=== PATIENT | male | born 1960 | race Caucasian/White ===

== ENCOUNTER 2023-04-06 00:27 | Inpatient (IN) | payer MEDICAID ==
[~2023-04-06] VITALS: Ht 165.1 cm; Wt 90.7 kg
[2023-04-06] VITALS (9 sets, daily range): BP systolic 136–153; PULSE 68–115; RESP 18–26; TEMP 97.4–99.1; O2SAT 92–99
[2023-04-06] MEDS ORDERED: IPRATROPIUM BROM 0.5 MG/2.5 ML VIAL.NEB (ATROVENT) INH ONE ×2 (00:39→00:45)
[2023-04-06] MEDS ORDERED: ALBUTEROL SULFATE 0.083% 2.5 MG/3 ML VIAL.NEB INH ONE ×2 (00:39→00:45)
[2023-04-06] MEDS ORDERED: DEXAMETHASONE SOD PHOSPHATE 10 MG/ML VIAL IVP ONE ×2 (00:45→23:15)
[2023-04-06] MEDS ORDERED: MORPHINE 4 MG INJ. 4 MG/ML VIAL IVP ONE (00:45)
[2023-04-06] MEDS ORDERED: DEXAMETHASONE SOD PHOSPHATE 10 MG/ML VIAL ONE (00:47)
[2023-04-06] MEDS ORDERED: MORPHINE 4 MG INJ. 4 MG/ML VIAL ONE (00:49)
[2023-04-06 00:50] LABS: BASOPHILS % (AUTO) 0.2 % (0.0-2.0); EOSINOPHILS # (AUTO) 0.4 K/uL (0.0-0.4); EOSINOPHILS % (AUTO) 4.6 % (0.0-4.0); HEMATOCRIT 42.7 % (36-54); HEMOGLOBIN 13.8 g/dL (14.0-18.0); LYMPHOCYTES # (AUTO) 4.9 K/uL (1.0-5.5); LYMPHOCYTES % (AUTO) 53.6 % (20.5-51.5); MEAN CORPUSCULAR HEMOGLOBIN 28 pg (27-31); MEAN CORPUSCULAR HGB CONC 32 % (32-36); MEAN CORPUSCULAR VOLUME 87 fL (79.0-98.0); MONOCYTES # (AUTO) 0.5 K/uL (0.0-1.0); MONOCYTES % (AUTO) 5.6 % (1.7-9.3); NEUTROPHILS # (AUTO) 3.3 K/uL (1.8-7.7); PLATELET COUNT (AUTO) 335 K/uL (130-430); RED BLOOD CELL COUNT(AUTO) 4.93 MIL/uL (4.2-6.2); RED CELL DISTRIBUTION WIDTH 15.2 % (9.0-15.0); WHITE BLOOD COUNT (AUTO) 9.1 K/uL (4.8-10.8)
[2023-04-06 01:18] LABS: ALANINE AMINOTRANSFERASE 13 U/L (12-78); ALBUMIN 3.5 g/dL (3.4-4.8); ANION GAP 10 (5-15); ASPARTATE AMINOTRANSFERASE 13 U/L (10-37); CALCIUM 8.7 mg/dL (8.4-11.0); CARBON DIOXIDE 28 mmol/L (23-29); CHLORIDE 105 mmol/L (98-107); CREATININE 1.01 mg/dL (0.55-1.30); GFR AFRICAN AMERICAN 96 mL/min (>90); GLUCOSE 143 mg/dL (74-106); POTASSIUM 3.6 mmol/L (3.5-5.1); SODIUM SERUM 143 mmol/L (136-145); TOTAL BILIRUBIN 0.2 mg/dL (0.0-1.0); UREA NITROGEN, BLOOD 18 mg/dL (8-21)
[2023-04-06 01:20] LABS: LIPASE 102 U/L (73-393)
[2023-04-06 01:23] LABS: GFR NON AFRICAN-AMERICAN 80 mL/min (>90)
[2023-04-06 03:18] LABS: BILIRUBIN,URINE NEGATIVE (NEGATIVE); CLARITY/URINE Clear (CLEAR); COLOR,URINE YELLOW (YELLOW); GLUCOSE,URINE NEGATIVE (NEGATIVE); KETONES,URINE NEGATIVE (NEGATIVE); NITRITE, URINE NEGATIVE (NEGATIVE); PH,URINE 5.5 (5.0-8.0); PROTEIN URINE NEGATIVE (NEGATIVE); UROBILINOGEN,URINE 0.2 (0.2-1.0)
[2023-04-06 03:20] LABS: BLOOD, URINE TRACE (NEGATIVE); LEUKOCYTE ESTERASE ,URINE NEGATIVE (NEGATIVE)
[2023-04-06 03:37] LABS: BACTERIA,URINE RARE /HPF (None Seen)
[2023-04-06] MEDS ORDERED: IPRATROPIUM/ALBUTEROL SULFATE 3 ML AMPUL.NEB (DUONEB) INH ONE (04:30)
[2023-04-06] MEDS ORDERED: PANTOPRAZOLE SODIUM 80 MG in NS 100 ML IV ONE (04:30)
[2023-04-06] MEDS ORDERED: MAG-AL HYDROX/SIMETH 30 ML UDC PO ONE ×2 (04:30→10:45)
[2023-04-06] MEDS ORDERED: PANTOPRAZOLE SODIUM 40 MG/VIAL (PROTONIX) ONE (04:58)
[2023-04-06] MEDS: MAG-AL HYDROX/SIMETH 30 ML UDC PO SCH ×3 (13:23→21:01)
[2023-04-06] MEDS: IPRATROPIUM/ALBUTEROL SULFATE 3 ML AMPUL.NEB (DUONEB) INH SCH (19:54)
[2023-04-06] MEDS: PANTOPRAZOLE SODIUM 40 MG/VIAL (PROTONIX) IVP SCH (21:01)
[2023-04-06] MEDS ORDERED: NALOXONE HCL 0.4 MG/ML AMP (NARCAN) IVP PRN (23:15)
[2023-04-06] MEDS ORDERED: MORPHINE 2 MG/ML INJ. SYRINGE IVP PRN (23:15)
[2023-04-06] MEDS ORDERED: MORPHINE 4 MG INJ. 4 MG/ML VIAL IVP PRN (23:15)
[2023-04-07 00:30] VITALS: BP_SYST 129; PULSE 88; RESP 18; TEMP 98.8; O2SAT 98
[2023-04-07] MEDS: IPRATROPIUM/ALBUTEROL SULFATE 3 ML AMPUL.NEB (DUONEB) INH SCH ×2 (02:01→06:56)
[2023-04-07 02:05] VITALS: O2SAT 97
[2023-04-07 05:14] LABS: BASOPHILS % (AUTO) 0.1 % (0.0-2.0); EOSINOPHILS % (AUTO) 0.2 % (0.0-4.0); HEMATOCRIT 40.3 % (36-54); HEMOGLOBIN 13.2 g/dL (14.0-18.0); LYMPHOCYTES # (AUTO) 1.3 K/uL (1.0-5.5); LYMPHOCYTES % (AUTO) 15.7 % (20.5-51.5); MEAN CORPUSCULAR HEMOGLOBIN 28 pg (27-31); MEAN CORPUSCULAR HGB CONC 33 % (32-36); MEAN CORPUSCULAR VOLUME 86 fL (79.0-98.0); MONOCYTES # (AUTO) 0.2 K/uL (0.0-1.0); MONOCYTES % (AUTO) 2.2 % (1.7-9.3); NEUTROPHILS # (AUTO) 6.6 K/uL (1.8-7.7); NEUTROPHILS % (AUTO) 81.8 % (40.0-70.0); PLATELET COUNT (AUTO) 345 K/uL (130-430); RED BLOOD CELL COUNT(AUTO) 4.68 MIL/uL (4.2-6.2); RED CELL DISTRIBUTION WIDTH 15.2 % (9.0-15.0); WHITE BLOOD COUNT (AUTO) 8.1 K/uL (4.8-10.8)
[2023-04-07 05:42] LABS: ALBUMIN 3.3 g/dL (3.4-4.8); CALCIUM 8.7 mg/dL (8.4-11.0); CREATININE 0.89 mg/dL (0.55-1.30); POTASSIUM 4.4 mmol/L (3.5-5.1); TOTAL BILIRUBIN 0.6 mg/dL (0.0-1.0); TOTAL PROTEIN, SERUM 6.5 g/dL (6.4-8.3)
[2023-04-07 06:55] VITALS: O2SAT 98
[2023-04-07 08:00] VITALS: O2SAT 95
[2023-04-07] MEDS ORDERED: METOPROLOL SUCCINATE 25 MG TAB.SR.24H (TOPROL XL) PO SCH (09:00)
[2023-04-07 09:38] VITALS: BP_SYST 140; PULSE 87; RESP 18; TEMP 97
[2023-04-07] MEDS: PANTOPRAZOLE SODIUM 40 MG/VIAL (PROTONIX) IVP SCH (09:43)
[2023-04-07 14:27] LABS: BARBITURATE, URINE NEGATIVE (NEG <=200); BENZODIAZEPINE, URINE NEGATIVE (NEG <=150); CANNABINOID, URINE NEGATIVE (NEG <=50); COCAINE, URINE NEGATIVE (NEG <=150); METHAMPHETAMINES SCREEN,URINE NEGATIVE (NEG <=500); OPIATE, URINE POSITIVE (NEG <=100); PHENCYCLIDINE SCREEN,URINE NEGATIVE (NEG <=25); URINE AMPHETAMINE NEGATIVE (NEG <=500); URINE METHADONE NEGATIVE (NEG <=200)
[2023-04-07 14:28] LABS: UR TRICYCLIC ANTIDEPRESSANTS NEGATIVE (NEG <=300); URINE OXYCODONE SCREEN NEGATIVE (NEG <=100); URINE PROPOXYPHENE SCREEN NEGATIVE (NEG <=300)
== END 2023-04-07 11:30 | disposition left against medical advice (07) | DRG 140 ==
LOC: SED 00:27 → STU 04:22
PROVIDERS: ADMIT Internal Medicine; ATTEND Internal Medicine
PROC: 5A09357 Assistance with Respiratory Ventilation, Less than 24 Consecutive Hours, Continuous Positive Airway Pressure (ICD-10-PCS; principal; 2023-04-06)
DX: J44.1 Chronic obstructive pulmonary disease with (acute) exacerbation (principal); J96.01 Acute respiratory failure with hypoxia; E44.1 Mild protein-calorie malnutrition; K80.20 Calculus of gallbladder without cholecystitis without obstruction; K27.9 Peptic ulcer, site unspecified, unspecified as acute or chronic, without hemorrhage or perforation; K29.20 Alcoholic gastritis without bleeding; J20.9 Acute bronchitis, unspecified; I10 Essential (primary) hypertension; E66.9 Obesity, unspecified; E27.9 Disorder of adrenal gland, unspecified; F60.9 Personality disorder, unspecified; Z68.33 Body mass index [BMI] 33.0-33.9, adult; Z87.891 Personal history of nicotine dependence
CPT/HCPCS: 36415; 71045; 71270-TC; 74175; 76376; 80053; 80307; 81000; 81003; 83690; 83735; 83880; 84484; 85025; 85379; 93306; 94640; 94660; 94760; 96365; 96375; 99291; C9113; G0378; J1100; J2270; Q9967

== ENCOUNTER 2023-04-20 13:03 | Inpatient (IN) | payer MEDICAID ==
[~2023-04-20] VITALS: Ht 165.1 cm; Wt 93.5 kg
[2023-04-20 13:06] VITALS: BP_SYST 199; PULSE 119; RESP 42; TEMP 99.2; O2SAT 97
[2023-04-20] MEDS ORDERED: IPRATROPIUM BROM 0.5 MG/2.5 ML VIAL.NEB (ATROVENT) INH ONE (13:15)
[2023-04-20] MEDS ORDERED: methylPREDNISolone SOD SUCC/PF 62.5 MG/ML VIAL IVP ONE (13:15)
[2023-04-20] MEDS ORDERED: ALBUTEROL SULFATE 0.083% 2.5 MG/3 ML VIAL.NEB INH ONE (13:15)
[2023-04-20] MEDS ORDERED: MORPHINE 4 MG INJ. 4 MG/ML VIAL IVP ONE (13:30)
[2023-04-20 13:34] LABS: BASOPHILS % (AUTO) 0.3 % (0.0-2.0); EOSINOPHILS # (AUTO) 0.2 K/uL (0.0-0.4); HEMATOCRIT 44.8 % (36-54); HEMOGLOBIN 14.5 g/dL (14.0-18.0); LYMPHOCYTES # (AUTO) 4.3 K/uL (1.0-5.5); LYMPHOCYTES % (AUTO) 40.6 % (20.5-51.5); MEAN CORPUSCULAR HEMOGLOBIN 28 pg (27-31); MEAN CORPUSCULAR HGB CONC 32 % (32-36); MEAN CORPUSCULAR VOLUME 87 fL (79.0-98.0); MONOCYTES # (AUTO) 0.5 K/uL (0.0-1.0); MONOCYTES % (AUTO) 5.2 % (1.7-9.3); NEUTROPHILS # (AUTO) 5.5 K/uL (1.8-7.7); NEUTROPHILS % (AUTO) 51.9 % (40.0-70.0); PLATELET COUNT (AUTO) 327 K/uL (130-430); RED BLOOD CELL COUNT(AUTO) 5.17 MIL/uL (4.2-6.2); RED CELL DISTRIBUTION WIDTH 15.5 % (9.0-15.0); WHITE BLOOD COUNT (AUTO) 10.5 K/uL (4.8-10.8)
[2023-04-20] MEDS ORDERED: NACL 0.9% 1,000 ML IV ONE ×2 (13:45→14:15)
[2023-04-20] MEDS ORDERED: MAGNESIUM SULFATE 50 ML IV ONE (13:45)
[2023-04-20] MEDS ORDERED: cefTRIAXone 1 GM in D5W 50 ML IV ONE (13:45)
[2023-04-20] MEDS ORDERED: ENALAPRILAT DIHYDRATE 1.25 MG/ML VIAL IVP ONE (14:15)
[2023-04-20 14:28] LABS: INFLUENZA TYPE A negative (NEGATIVE); INFLUENZA TYPE B NEGATIVE (NEGATIVE)
[2023-04-20 14:43] LABS: ANION GAP 6 (5-15); CALCIUM 8.4 mg/dL (8.4-11.0); CARBON DIOXIDE 30 mmol/L (23-29); CHLORIDE 105 mmol/L (98-107); CREATININE 1.03 mg/dL (0.55-1.30); GFR AFRICAN AMERICAN 94 mL/min (>90); GLUCOSE 121 mg/dL (74-106); POTASSIUM 3.4 mmol/L (3.5-5.1); SODIUM SERUM 141 mmol/L (136-145); UREA NITROGEN, BLOOD 16 mg/dL (8-21)
[2023-04-20 14:49] LABS: ALANINE AMINOTRANSFERASE 16 U/L (12-78); ALBUMIN 3.6 g/dL (3.4-4.8); ASPARTATE AMINOTRANSFERASE 13 U/L (10-37); TOTAL BILIRUBIN 0.4 mg/dL (0.0-1.0); TOTAL PROTEIN, SERUM 7.1 g/dL (6.4-8.3)
[2023-04-20 14:50] LABS: GFR NON AFRICAN-AMERICAN 78 mL/min (>90)
[2023-04-20] MEDS ORDERED: KCL 20 mEq in 100 mL (PREMIX) 100 ML IV ONE (15:15)
[2023-04-20] MEDS ORDERED: cefTRIAXone 1 GM VIAL ONE (15:24)
[2023-04-20] MEDS ORDERED: ACETAMINOPHEN 325 MG TABLET PO PRN (15:30)
[2023-04-20] MEDS ORDERED: ZOLPIDEM TARTRATE 5 MG TABLET PO PRN (15:30)
[2023-04-20] MEDS ORDERED: MAGNESIUM SULFATE 50 ML IV PRN (15:30)
[2023-04-20] MEDS ORDERED: MUPIROCIN 2% TOPICAL OINTMENT 22 GM NS PRN (15:30)
[2023-04-20] MEDS ORDERED: DOCUSATE SODIUM 100 MG CAPSULE PO PRN (15:30)
[2023-04-20] MEDS ORDERED: LORazepam 2 MG/ML VIAL IVP PRN (15:30)
[2023-04-20] MEDS ORDERED: MORPHINE 2 MG/ML INJ. SYRINGE IVP PRN ×2 (15:30)
[2023-04-20] MEDS ORDERED: POTASSIUM CHLORIDE 20 MEQ TAB.PRT.SR PO PRN (15:30)
[2023-04-20] MEDS ORDERED: ONDANSETRON HCL 4 MG/2 ML VIAL IVP PRN (15:30)
[2023-04-20 15:42] LABS: ABG O2 SAT% ESTIMATE 98.8 % (94.0-100.0); BLOOD GAS BASE EXCESS -0.4 mmol/L (-3.0-3.0); BLOOD GAS HCO3 26.1 mmol/L (21.0-27.0); BLOOD GAS PCO2 49.8 mmHg (32.0-45.0); BLOOD GAS PH 7.337 (7.350-7.450); BLOOD GAS PO2 150.5 mmHg (75.0-100.0)
[2023-04-20] MEDS ORDERED: METOPROLOL TARTRATE 25 MG TABLET PO ONE (15:45)
[2023-04-20 15:47] LABS: ALLEN'S TEST POSITIVE (P)
[2023-04-20] MEDS ORDERED: MORPHINE 4 MG INJ. 4 MG/ML VIAL IM ONE (16:15)
[2023-04-20 18:48] VITALS: BP_SYST 130; PULSE 109; O2SAT 98
[2023-04-20 18:59] VITALS: BP_SYST 103; PULSE 100; RESP 18; TEMP 98.3; O2SAT 97
[2023-04-20 19:30] VITALS: BP_SYST 137; PULSE 101; RESP 20; TEMP 98.2; O2SAT 98
[2023-04-20 20:00] VITALS: BP_SYST 137; PULSE 101; RESP 20; TEMP 98.2; O2SAT 98
[2023-04-20] MEDS ORDERED: IPRATROPIUM/ALBUTEROL SULFATE 3 ML AMPUL.NEB (DUONEB) ONE (20:07)
[2023-04-20 20:10] VITALS: O2SAT 98
[2023-04-20] MEDS: IPRATROPIUM/ALBUTEROL SULFATE 3 ML AMPUL.NEB (DUONEB) INH PRN (20:15)
[2023-04-20] MEDS: METOPROLOL TARTRATE 25 MG TABLET PO SCH (21:08)
[2023-04-20] MEDS: HEPARIN SODIUM,PORCINE 5,000 UNITS/ML VIAL SUBCUT SCH (21:09)
[2023-04-21] VITALS (8 sets, daily range): BP systolic 113–148; PULSE 61–92; RESP 16–18; TEMP 97.2–98.9; O2SAT 96–99
[2023-04-21 05:32] LABS: BASOPHILS % (AUTO) 0.1 % (0.0-2.0); HEMATOCRIT 38.6 % (36-54); HEMOGLOBIN 12.4 g/dL (14.0-18.0); LYMPHOCYTES # (AUTO) 2.2 K/uL (1.0-5.5); LYMPHOCYTES % (AUTO) 24.5 % (20.5-51.5); MEAN CORPUSCULAR HEMOGLOBIN 28 pg (27-31); MEAN CORPUSCULAR HGB CONC 32 % (32-36); MEAN CORPUSCULAR VOLUME 86 fL (79.0-98.0); MONOCYTES # (AUTO) 0.4 K/uL (0.0-1.0); MONOCYTES % (AUTO) 4.4 % (1.7-9.3); NEUTROPHILS # (AUTO) 6.5 K/uL (1.8-7.7); PLATELET COUNT (AUTO) 300 K/uL (130-430); RED CELL DISTRIBUTION WIDTH 15.6 % (9.0-15.0); WHITE BLOOD COUNT (AUTO) 9.2 K/uL (4.8-10.8)
[2023-04-21 05:57] LABS: CREATININE 0.73 mg/dL (0.55-1.30)
[2023-04-21] MEDS: PANTOPRAZOLE SODIUM 40 MG TAB PO SCH ×2 (08:37→21:06)
[2023-04-21] MEDS: METOPROLOL TARTRATE 25 MG TABLET PO SCH ×2 (08:38→21:07)
[2023-04-21] MEDS: HEPARIN SODIUM,PORCINE 5,000 UNITS/ML VIAL SUBCUT SCH ×2 (08:44→21:08)
[2023-04-21] MEDS: METHYLPREDNISOLONE SOD SUCC 40 MG/ML VIAL IVP SCH ×2 (08:51→21:09)
[2023-04-21 19:12] LABS: BARBITURATE, URINE NEGATIVE (NEG <=200); BENZODIAZEPINE, URINE NEGATIVE (NEG <=150); CANNABINOID, URINE NEGATIVE (NEG <=50); COCAINE, URINE NEGATIVE (NEG <=150); METHAMPHETAMINES SCREEN,URINE NEGATIVE (NEG <=500); OPIATE, URINE POSITIVE (NEG <=100); PHENCYCLIDINE SCREEN,URINE NEGATIVE (NEG <=25); UR TRICYCLIC ANTIDEPRESSANTS NEGATIVE (NEG <=300); URINE AMPHETAMINE NEGATIVE (NEG <=500); URINE METHADONE NEGATIVE (NEG <=200); URINE OXYCODONE SCREEN NEGATIVE (NEG <=100); URINE PROPOXYPHENE SCREEN NEGATIVE (NEG <=300)
[2023-04-22] VITALS (7 sets, daily range): BP systolic 128–139; PULSE 59–69; RESP 18; TEMP 97.8–98.7; O2SAT 92–97
[2023-04-22 07:13] LABS: CALCIUM 8.5 mg/dL (8.4-11.0); CREATININE 0.76 mg/dL (0.55-1.30)
[2023-04-22 07:17] LABS: BASOPHILS % (AUTO) 0.1 % (0.0-2.0); HEMATOCRIT 39.9 % (36-54); HEMOGLOBIN 12.8 g/dL (14.0-18.0); LYMPHOCYTES # (AUTO) 1.9 K/uL (1.0-5.5); LYMPHOCYTES % (AUTO) 16.9 % (20.5-51.5); MEAN CORPUSCULAR HEMOGLOBIN 28 pg (27-31); MEAN CORPUSCULAR HGB CONC 32 % (32-36); MEAN CORPUSCULAR VOLUME 86 fL (79.0-98.0); MONOCYTES # (AUTO) 0.3 K/uL (0.0-1.0); MONOCYTES % (AUTO) 2.8 % (1.7-9.3); NEUTROPHILS % (AUTO) 80.2 % (40.0-70.0); PLATELET COUNT (AUTO) 314 K/uL (130-430); RED BLOOD CELL COUNT(AUTO) 4.64 MIL/uL (4.2-6.2); RED CELL DISTRIBUTION WIDTH 15.4 % (9.0-15.0); WHITE BLOOD COUNT (AUTO) 11.2 K/uL (4.8-10.8)
[2023-04-22] MEDS: PANTOPRAZOLE SODIUM 40 MG TAB PO SCH (09:23)
[2023-04-22] MEDS: METOPROLOL TARTRATE 25 MG TABLET PO SCH (09:25)
[2023-04-22] MEDS: HEPARIN SODIUM,PORCINE 5,000 UNITS/ML VIAL SUBCUT SCH (09:33)
[2023-04-22] MEDS: IPRATROPIUM/ALBUTEROL SULFATE 3 ML AMPUL.NEB (DUONEB) INH PRN (09:35)
[2023-04-22] MEDS ORDERED: ALBMDI INH (09:48)
[2023-04-22] MEDS ORDERED: METH-776 PO (09:48)
== END 2023-04-22 13:05 | disposition home or self-care (01) | DRG 133 ==
LOC: SED 13:03 → UNDOADMIN 15:27 → SIC 15:27 → STU 16:25 → SMU 04-22 05:26
PROVIDERS: ADMIT General Practice; ATTEND General Practice
DX: J96.01 Acute respiratory failure with hypoxia (principal); E87.20 Acidosis, unspecified; R65.10 Systemic inflammatory response syndrome (SIRS) of non-infectious origin without acute organ dysfunction; J44.1 Chronic obstructive pulmonary disease with (acute) exacerbation; J45.901 Unspecified asthma with (acute) exacerbation; K29.70 Gastritis, unspecified, without bleeding; Z20.822 Contact with and (suspected) exposure to COVID-19; E87.6 Hypokalemia; Z87.891 Personal history of nicotine dependence
CPT/HCPCS: 36415; 36600; 71045; 76700-TC; 80048; 80053; 80307; 82803; 83037; 83605; 83735; 83880; 84484; 85025; 87040; 87081; 93005; 94640; 94660; 94760; 96365; 96367; 96375; 99291; G0378; J0696; J1030; J1644; J2270; J2930; J3475

== ENCOUNTER 2023-06-02 22:51 | Emergency (ER) | payer MEDICAID ==
[~2023-06-02] VITALS: Ht 165.1 cm; Wt 92.1 kg
[~2023-06-02 22:51] MED LIST: ALBMDI INH; METH-776 PO
[2023-06-02 23:00] VITALS: BP_SYST 147; PULSE 82; RESP 18; TEMP 98; O2SAT 98
[2023-06-03] MEDS ORDERED: methylPREDNISolone SOD SUCC/PF 62.5 MG/ML VIAL IVP ONE (00:15)
[2023-06-03] MEDS ORDERED: MORPHINE 4 MG INJ. 4 MG/ML VIAL IVP ONE (00:15)
[2023-06-03] MEDS ORDERED: IPRATROPIUM/ALBUTEROL SULFATE 3 ML AMPUL.NEB (DUONEB) INH ONE (00:15)
[2023-06-03] MEDS ORDERED: FAMOTIDINE PF 20 MG/2 ML VIAL IVP ONE (00:15)
[2023-06-03] MEDS ORDERED: ONDANSETRON HCL 4 MG/2 ML VIAL IVP ONE (00:15)
[2023-06-03 00:23] LABS: BASOPHILS % (AUTO) 0.5 % (0.0-2.0); EOSINOPHILS # (AUTO) 0.2 K/uL (0.0-0.4); EOSINOPHILS % (AUTO) 2.4 % (0.0-4.0); HEMATOCRIT 39.7 % (36-54); HEMOGLOBIN 12.9 g/dL (14.0-18.0); LYMPHOCYTES # (AUTO) 3.4 K/uL (1.0-5.5); MEAN CORPUSCULAR HEMOGLOBIN 28 pg (27-31); MEAN CORPUSCULAR HGB CONC 33 % (32-36); MEAN CORPUSCULAR VOLUME 86 fL (79.0-98.0); MONOCYTES # (AUTO) 0.7 K/uL (0.0-1.0); MONOCYTES % (AUTO) 8.3 % (1.7-9.3); NEUTROPHILS # (AUTO) 3.6 K/uL (1.8-7.7); NEUTROPHILS % (AUTO) 45.8 % (40.0-70.0); PLATELET COUNT (AUTO) 339 K/uL (130-430); RED CELL DISTRIBUTION WIDTH 15.2 % (9.0-15.0); WHITE BLOOD COUNT (AUTO) 7.9 K/uL (4.8-10.8)
[2023-06-03 00:37] LABS: ANION GAP 10 (5-15); CALCIUM 8.5 mg/dL (8.4-11.0); CARBON DIOXIDE 30 mmol/L (23-29); CHLORIDE 104 mmol/L (98-107); CREATININE 1.05 mg/dL (0.55-1.30); GFR AFRICAN AMERICAN 92 mL/min (>90); GLUCOSE 109 mg/dL (74-106); POTASSIUM 3.3 mmol/L (3.5-5.1); SODIUM SERUM 144 mmol/L (136-145); UREA NITROGEN, BLOOD 17 mg/dL (8-21)
[2023-06-03 00:41] LABS: GFR NON AFRICAN-AMERICAN 76 mL/min (>90)
[2023-06-03 00:44] LABS: ALANINE AMINOTRANSFERASE 16 U/L (12-78); ALBUMIN 3.2 g/dL (3.4-4.8); ASPARTATE AMINOTRANSFERASE 10 U/L (10-37); LIPASE 42 U/L (16-77); TOTAL BILIRUBIN 0.2 mg/dL (0.0-1.0); TOTAL PROTEIN, SERUM 6.3 g/dL (6.4-8.3)
[2023-06-03] MEDS ORDERED: ANT30 PO (03:29)
[2023-06-03] MEDS ORDERED: SUCR1TAB2 PO (03:29)
[2023-06-03] MEDS ORDERED: PRO40 PO (03:29)
[2023-06-03] MEDS ORDERED: CIPR500T5 PO (03:29)
[2023-06-03 03:54] VITALS: BP_SYST 128; PULSE 74; RESP 18; TEMP 98.2; O2SAT 97
== END 2023-06-03 03:54 | disposition home or self-care (01) ==
LOC: SED 22:51
DX: K29.70 Gastritis, unspecified, without bleeding (principal); N20.0 Calculus of kidney; I88.9 Nonspecific lymphadenitis, unspecified; N40.1 Benign prostatic hyperplasia with lower urinary tract symptoms; N39.0 Urinary tract infection, site not specified; E87.6 Hypokalemia; I10 Essential (primary) hypertension; J45.901 Unspecified asthma with (acute) exacerbation; R06.02 Shortness of breath; Z79.899 Other long term (current) drug therapy
CPT/HCPCS: 99285; 80053; 83690; 85025; 84484; 36415; 93005; 74176; 96374; 96375; 71045; 76376; 94640; J3490; J2930; J2405; J2270

== ENCOUNTER 2024-03-02 21:01 | Inpatient (IN) | payer MEDICAID ==
[~2024-03-02] VITALS: Ht 165.1 cm; Wt 93.4 kg
[~2024-03-02 21:01] MED LIST changes: +ALBU2.5V7 INH; +ANT30 PO; +FLUT1AER INH; -METH-776 PO; +PRED20TA PO; +PRO40 PO; +SUCR1TAB2 PO; +TAMS0.4C96 PO
[2024-03-02 21:15] VITALS: BP_SYST 184; PULSE 111; RESP 28; TEMP 97; O2SAT 94
[2024-03-02] MEDS: ALBUTEROL SULFATE 0.083% 2.5 MG/3 ML VIAL.NEB INH ONE (21:32)
[2024-03-02] MEDS ORDERED: AZITHROMYCIN 500 MG/VIAL (ZITHROMAX) IV ONE (21:33)
[2024-03-02] MEDS: methylPREDNISolone SOD SUCC/PF 62.5 MG/ML VIAL IVP ONE (21:35)
[2024-03-02] MEDS: cefTRIAXone 1 GM IVPB PREMIX 50 ML IV ONE (21:37)
[2024-03-02 21:39] LABS: BASOPHILS # (AUTO) 0.1 K/uL (0.0-0.2); BASOPHILS % (AUTO) 0.5 % (0.0-2.0); EOSINOPHILS # (AUTO) 0.5 K/uL (0.0-0.4); EOSINOPHILS % (AUTO) 4.1 % (0.0-4.0); HEMOGLOBIN 15.2 g/dL (14.0-18.0); LYMPHOCYTES # (AUTO) 3.9 K/uL (1.0-5.5); LYMPHOCYTES % (AUTO) 31.3 % (20.5-51.5); MEAN CORPUSCULAR HEMOGLOBIN 29 pg (27-31); MEAN CORPUSCULAR HGB CONC 34 % (32-36); MEAN CORPUSCULAR VOLUME 87 fL (79.0-98.0); MONOCYTES # (AUTO) 0.6 K/uL (0.0-1.0); MONOCYTES % (AUTO) 5.1 % (1.7-9.3); NEUTROPHILS # (AUTO) 7.3 K/uL (1.8-7.7); PLATELET COUNT (AUTO) 377 K/uL (130-430); RED BLOOD CELL COUNT(AUTO) 5.18 MIL/uL (4.2-6.2); RED CELL DISTRIBUTION WIDTH 14.3 % (9.0-15.0); WHITE BLOOD COUNT (AUTO) 12.3 K/uL (4.8-10.8)
[2024-03-02 22:18] LABS: ALANINE AMINOTRANSFERASE 30 U/L (12-78); ANION GAP 9 (5-15); ASPARTATE AMINOTRANSFERASE 17 U/L (10-37); CALCIUM 9.2 mg/dL (8.4-11.0); CARBON DIOXIDE 30 mmol/L (23-29); CHLORIDE 106 mmol/L (98-107); CREATININE 1.15 mg/dL (0.55-1.30); GFR AFRICAN AMERICAN 83 mL/min (>90); GLUCOSE 115 mg/dL (74-106); POTASSIUM 3.5 mmol/L (3.5-5.1); SODIUM SERUM 145 mmol/L (136-145); TOTAL BILIRUBIN 0.6 mg/dL (0.0-1.0); TOTAL PROTEIN, SERUM 7.7 g/dL (6.4-8.3); UREA NITROGEN, BLOOD 22 mg/dL (8-21)
[2024-03-02 22:22] LABS: GFR NON AFRICAN-AMERICAN 68 mL/min (>90)
[2024-03-02] MEDS: AZITHROMYCIN 500 MG in NS 250 ML IV ONE (22:29)
[2024-03-02] MEDS: MAGNESIUM SULFATE 50 ML IV ONE (23:37)
[2024-03-03] VITALS (9 sets, daily range): BP systolic 150–159; PULSE 67–92; RESP 16–18; TEMP 97.1–98.8; O2SAT 94–98
[2024-03-03] MEDS ORDERED: LOSA100T24 PO (00:40)
[2024-03-03] MEDS ORDERED: ATOR-1 PO (00:40)
[2024-03-03] MEDS: MORPHINE 2 MG/ML INJ. SYRINGE IVP PRN (06:57)
[2024-03-03] MEDS: hydrALAZINE HCL 20 MG/ML VIAL IVP PRN (07:08)
[2024-03-03] MEDS: METHYLPREDNISOLONE SOD SUCC 40 MG/ML VIAL IVP SCH ×2 (08:44→14:59)
[2024-03-03 08:57] LABS: BASOPHILS % (AUTO) 0.1 % (0.0-2.0); HEMATOCRIT 44.2 % (36-54); HEMOGLOBIN 14.9 g/dL (14.0-18.0); LYMPHOCYTES # (AUTO) 1.6 K/uL (1.0-5.5); LYMPHOCYTES % (AUTO) 28.6 % (20.5-51.5); MEAN CORPUSCULAR HEMOGLOBIN 30 pg (27-31); MEAN CORPUSCULAR HGB CONC 34 % (32-36); MEAN CORPUSCULAR VOLUME 88 fL (79.0-98.0); MONOCYTES # (AUTO) 0.1 K/uL (0.0-1.0); MONOCYTES % (AUTO) 1.2 % (1.7-9.3); NEUTROPHILS # (AUTO) 3.9 K/uL (1.8-7.7); NEUTROPHILS % (AUTO) 70.1 % (40.0-70.0); PLATELET COUNT (AUTO) 359 K/uL (130-430); RED BLOOD CELL COUNT(AUTO) 5.01 MIL/uL (4.2-6.2); RED CELL DISTRIBUTION WIDTH 14.5 % (9.0-15.0); WHITE BLOOD COUNT (AUTO) 5.6 K/uL (4.8-10.8)
[2024-03-03 09:12] LABS: PROTHROMBIN TIME 10.6 SECS (9.5-12.5)
[2024-03-03 09:16] LABS: ALBUMIN 3.7 g/dL (3.4-4.8); CALCIUM 9.2 mg/dL (8.4-11.0); CREATININE 0.93 mg/dL (0.55-1.30); POTASSIUM 3.9 mmol/L (3.5-5.1); TOTAL BILIRUBIN 0.6 mg/dL (0.0-1.0); TOTAL PROTEIN, SERUM 7.4 g/dL (6.4-8.3)
[2024-03-03] MEDS: AZITHROMYCIN 250 MG in NS 250 ML IV SCH (10:31)
[2024-03-03 14:17] LABS: BLOOD GAS BASE EXCESS -1.8 mmol/L (-3.0-3.0); BLOOD GAS HCO3 21.7 mmol/L (21.0-27.0); BLOOD GAS PCO2 33.4 mmHg (32.0-45.0)
[2024-03-03 14:18] LABS: ABG O2 SAT% ESTIMATE 96.1 % (94.0-100.0); ALLEN'S TEST POSITIVE (P)
[2024-03-03 16:09] LABS: BILIRUBIN,URINE NEGATIVE (NEGATIVE); BLOOD, URINE NEGATIVE (NEGATIVE); COLOR,URINE YELLOW (YELLOW); GLUCOSE,URINE NEGATIVE (NEGATIVE); KETONES,URINE NEGATIVE (NEGATIVE); LEUKOCYTE ESTERASE ,URINE NEGATIVE (NEGATIVE); NITRITE, URINE NEGATIVE (NEGATIVE); PROTEIN URINE NEGATIVE (NEGATIVE); UROBILINOGEN,URINE 0.2 (0.2-1.0)
[2024-03-03 16:19] LABS: CLARITY/URINE SLIGHTLY HAZY (CLEAR)
[2024-03-03] MEDS: HYDROcodone/ACETAMIN 5-325 MG TAB (NORCO/ VICODIN) PO PRN (16:55)
[2024-03-03] MEDS: IPRATROPIUM/ALBUTEROL SULFATE 3 ML AMPUL.NEB (DUONEB) INH PRN (17:15)
[2024-03-03] MEDS: ACETAMINOPHEN 500 MG TABLET PO PRN (21:04)
[2024-03-04] VITALS: BP_SYST 149; PULSE 79; RESP 16; TEMP 98; O2SAT 95
[2024-03-04 08:00] VITALS: BP_SYST 148; PULSE 66; RESP 18; TEMP 98.7; O2SAT 97
[2024-03-04] MEDS: PANTOPRAZOLE SODIUM 40 MG TAB PO SCH (09:21)
[2024-03-04] MEDS ORDERED: OMEP20CA15 PO (10:47)
[2024-03-04] MEDS ORDERED: FLUT1AER INH (10:47)
[2024-03-04] MEDS ORDERED: METH-776 PO (10:47)
[2024-03-04] MEDS ORDERED: AZIT500T PO (10:47)
[2024-03-04 11:07] VITALS: BP_SYST 133; PULSE 66; RESP 16; TEMP 97.8; O2SAT 93
[2024-03-04 11:19] VITALS: BP_SYST 148; PULSE 74; RESP 22; TEMP 98.1; O2SAT 97
== END 2024-03-04 12:05 | disposition home or self-care (01) | DRG 140 ==
LOC: SED 21:01 → STU 03-03 05:38
PROVIDERS: ADMIT Student in an Organized Health Care Education/Training Program; ATTEND Student in an Organized Health Care Education/Training Program
DX: J44.1 Chronic obstructive pulmonary disease with (acute) exacerbation (principal); J96.01 Acute respiratory failure with hypoxia; R65.11 Systemic inflammatory response syndrome (SIRS) of non-infectious origin with acute organ dysfunction; Z87.442 Personal history of urinary calculi; Z72.0 Tobacco use; Z79.899 Other long term (current) drug therapy
CPT/HCPCS: 36415; 71045; 76700; 80053; 81001; 81003; 82803; 84484; 85025; 85379; 85610; 87040; 94070; 94640; 96365; 99285; G0378; J0360; J0456; J0696; J1030; J2270; J2930; J3475; J7050

== ENCOUNTER 2024-03-14 16:33 | Inpatient (IN) | payer MEDICAID ==
[~2024-03-14] VITALS: Ht 165.1 cm; Wt 92.1 kg
[~2024-03-14 16:33] MED LIST changes: +ATOR-1 PO; +AZIT500T PO; +LOSA100T24 PO; +METH-776 PO; +OMEP20CA15 PO
[2024-03-14 16:46] VITALS: BP_SYST 139; PULSE 110; RESP 1; TEMP 97.4; O2SAT 95
[2024-03-14] MEDS: IPRATROPIUM/ALBUTEROL SULFATE 3 ML AMPUL.NEB (DUONEB) INH ONE (16:53)
[2024-03-14 16:54] LABS: ABG O2 SAT% ESTIMATE 93.8 % (94.0-100.0); BLOOD GAS BASE EXCESS -2.1 mmol/L (-3.0-3.0); BLOOD GAS HCO3 21.5 mmol/L (21.0-27.0); BLOOD GAS PH 7.419 (7.350-7.450); BLOOD GAS PO2 66.8 mmHg (75.0-100.0)
[2024-03-14] MEDS ORDERED: methylPREDNISolone SOD SUCC/PF 62.5 MG/ML VIAL ONE (17:06)
[2024-03-14 17:43] LABS: BASOPHILS % (AUTO) 0.3 % (0.0-2.0); EOSINOPHILS # (AUTO) 0.8 K/uL (0.0-0.4); HEMATOCRIT 43.2 % (36-54); HEMOGLOBIN 14.6 g/dL (14.0-18.0); LYMPHOCYTES % (AUTO) 51.6 % (20.5-51.5); MEAN CORPUSCULAR HEMOGLOBIN 30 pg (27-31); MEAN CORPUSCULAR HGB CONC 34 % (32-36); MEAN CORPUSCULAR VOLUME 87 fL (79.0-98.0); MONOCYTES # (AUTO) 0.5 K/uL (0.0-1.0); MONOCYTES % (AUTO) 5.3 % (1.7-9.3); NEUTROPHILS # (AUTO) 3.3 K/uL (1.8-7.7); NEUTROPHILS % (AUTO) 34.8 % (40.0-70.0); PLATELET COUNT (AUTO) 352 K/uL (130-430); RED BLOOD CELL COUNT(AUTO) 4.95 MIL/uL (4.2-6.2); RED CELL DISTRIBUTION WIDTH 14.2 % (9.0-15.0); WHITE BLOOD COUNT (AUTO) 9.6 K/uL (4.8-10.8)
[2024-03-14] MEDS: methylPREDNISolone SOD SUCC/PF 62.5 MG/ML VIAL IVP ONE (17:43)
[2024-03-14] MEDS: NACL 0.9% 1,000 ML IV ONE (18:15)
[2024-03-14] MEDS: ONDANSETRON HCL 4 MG/2 ML VIAL IVP ONE (18:16)
[2024-03-14] MEDS: KETOROLAC TROMETHAMINE 30 MG VIAL IVP ONE (18:16)
[2024-03-14] MEDS: MORPHINE 2 MG/ML INJ. SYRINGE IVP ONE (18:16)
[2024-03-14 19:04] LABS: ALANINE AMINOTRANSFERASE 27 U/L (12-78); ALBUMIN 3.8 g/dL (3.4-4.8); ANION GAP 10 (5-15); ASPARTATE AMINOTRANSFERASE 17 U/L (10-37); BILIRUBIN,DIRECT 0.1 mg/dL (0.0-0.3); CALCIUM 8.9 mg/dL (8.4-11.0); CARBON DIOXIDE 30 mmol/L (23-29); CHLORIDE 104 mmol/L (98-107); GFR AFRICAN AMERICAN 97 mL/min (>90); GLUCOSE 107 mg/dL (74-106); POTASSIUM 3.1 mmol/L (3.5-5.1); SODIUM SERUM 144 mmol/L (136-145); TOTAL BILIRUBIN 0.4 mg/dL (0.0-1.0); TOTAL PROTEIN, SERUM 7.2 g/dL (6.4-8.3); UREA NITROGEN, BLOOD 12 mg/dL (8-21)
[2024-03-14 19:09] LABS: GFR NON AFRICAN-AMERICAN 80 mL/min (>90)
[2024-03-14 19:33] LABS: INFLUENZA TYPE A Negative (NEGATIVE); INFLUENZA TYPE B NEGATIVE (NEGATIVE)
[2024-03-14 21:21] LABS: BILIRUBIN,URINE NEGATIVE (NEGATIVE); BLOOD, URINE NEGATIVE (NEGATIVE); CLARITY/URINE CLEAR (CLEAR); COLOR,URINE YELLOW (YELLOW); GLUCOSE,URINE NEGATIVE (NEGATIVE); KETONES,URINE NEGATIVE (NEGATIVE); LEUKOCYTE ESTERASE ,URINE NEGATIVE (NEGATIVE); NITRITE, URINE NEGATIVE (NEGATIVE); PROTEIN URINE NEGATIVE (NEGATIVE); UROBILINOGEN,URINE 0.2 (0.2-1.0)
[2024-03-14] MEDS: POTASSIUM CHLORIDE 20 MEQ TABLET.ER PO ONE (21:38)
[2024-03-14] MEDS: METHYLPREDNISOLONE SOD SUCC 40 MG/ML VIAL IVP SCH (21:39)
[2024-03-14] MEDS: LevALBUTEROL HCL 1.25 MG/0.5 ML *CONC.* VIAL.NEB (XOPENEX CONC.) INH ONE (21:43)
[2024-03-14 23:43] VITALS: BP_SYST 150; PULSE 96; RESP 20; TEMP 97.5; O2SAT 95
[2024-03-15] VITALS (9 sets, daily range): BP systolic 133–144; PULSE 81–102; RESP 15–20; TEMP 97.3–98.5; O2SAT 93–96
[2024-03-15 07:46] LABS: ALBUMIN 3.2 g/dL (3.4-4.8); CALCIUM 8.8 mg/dL (8.4-11.0); CREATININE 0.93 mg/dL (0.55-1.30); POTASSIUM 4.3 mmol/L (3.5-5.1); TOTAL BILIRUBIN 0.4 mg/dL (0.0-1.0); TOTAL PROTEIN, SERUM 6.6 g/dL (6.4-8.3)
[2024-03-15 08:37] LABS: BASOPHILS % (AUTO) 0.3 % (0.0-2.0); EOSINOPHILS % (AUTO) 0.1 % (0.0-4.0); HEMATOCRIT 42.1 % (36-54); HEMOGLOBIN 14.4 g/dL (14.0-18.0); LYMPHOCYTES # (AUTO) 1.7 K/uL (1.0-5.5); LYMPHOCYTES % (AUTO) 18.6 % (20.5-51.5); MEAN CORPUSCULAR HEMOGLOBIN 30 pg (27-31); MEAN CORPUSCULAR HGB CONC 34 % (32-36); MEAN CORPUSCULAR VOLUME 87 fL (79.0-98.0); MONOCYTES # (AUTO) 0.1 K/uL (0.0-1.0); MONOCYTES % (AUTO) 0.8 % (1.7-9.3); NEUTROPHILS # (AUTO) 7.1 K/uL (1.8-7.7); NEUTROPHILS % (AUTO) 80.2 % (40.0-70.0); PLATELET COUNT (AUTO) 349 K/uL (130-430); RED BLOOD CELL COUNT(AUTO) 4.83 MIL/uL (4.2-6.2); RED CELL DISTRIBUTION WIDTH 14.2 % (9.0-15.0); WHITE BLOOD COUNT (AUTO) 8.9 K/uL (4.8-10.8)
[2024-03-15] MEDS ORDERED: ACETAMINOPHEN 500 MG TABLET PO PRN (13:30)
[2024-03-15] MEDS ORDERED: OMEPRAZOLE Non-Formulary 20 MG CAPSULE.DR PO SCH (13:45)
[2024-03-15] MEDS: PANTOPRAZOLE SODIUM 40 MG TAB PO ONE (14:39)
[2024-03-15] MEDS: POLYETHYLENE GLYCOL 3350, 17 GM/ POWD.PACK PO ONE (14:40)
[2024-03-15] MEDS: LOSARTAN POTASSIUM 50 MG TABLET (COZAAR) PO ONE (14:40)
[2024-03-15] MEDS: ATORVASTATIN 20 MG TABLET PO ONE (14:40)
[2024-03-15] MEDS: IPRATROPIUM/ALBUTEROL SULFATE 3 ML AMPUL.NEB (DUONEB) INH SCH (16:07)
[2024-03-15] MEDS: LOSARTAN POTASSIUM 50 MG TABLET (COZAAR) PO SCH (20:37)
[2024-03-15] MEDS: AMPICILLIN SODIUM/SULBACTAM NA 3 GM in NS 100 ML IV SCH (20:39)
[2024-03-16] VITALS (7 sets, daily range): BP systolic 115–142; PULSE 82–90; RESP 16–18; TEMP 97.5–99; O2SAT 94–98
[2024-03-16] MEDS ORDERED: IPRATROPIUM/ALBUTEROL SULFATE 3 ML AMPUL.NEB (DUONEB) INH SCH (09:00)
[2024-03-16] MEDS: POLYETHYLENE GLYCOL 3350, 17 GM/ POWD.PACK PO SCH (09:00)
[2024-03-16] MEDS: ATORVASTATIN 20 MG TABLET PO SCH (09:01)
[2024-03-16] MEDS: PANTOPRAZOLE SODIUM 40 MG TAB PO SCH (09:03)
[2024-03-16 09:55] LABS: BASOPHILS % (AUTO) 0.1 % (0.0-2.0); HEMATOCRIT 40.8 % (36-54); HEMOGLOBIN 13.5 g/dL (14.0-18.0); LYMPHOCYTES # (AUTO) 2.1 K/uL (1.0-5.5); LYMPHOCYTES % (AUTO) 14.6 % (20.5-51.5); MEAN CORPUSCULAR HEMOGLOBIN 29 pg (27-31); MEAN CORPUSCULAR HGB CONC 33 % (32-36); MEAN CORPUSCULAR VOLUME 88 fL (79.0-98.0); MONOCYTES # (AUTO) 0.6 K/uL (0.0-1.0); MONOCYTES % (AUTO) 4.1 % (1.7-9.3); NEUTROPHILS # (AUTO) 11.5 K/uL (1.8-7.7); NEUTROPHILS % (AUTO) 81.2 % (40.0-70.0); PLATELET COUNT (AUTO) 354 K/uL (130-430); RED BLOOD CELL COUNT(AUTO) 4.64 MIL/uL (4.2-6.2); RED CELL DISTRIBUTION WIDTH 14.5 % (9.0-15.0); WHITE BLOOD COUNT (AUTO) 14.2 K/uL (4.8-10.8)
[2024-03-16 10:08] LABS: CALCIUM 8.8 mg/dL (8.4-11.0); CREATININE 1.1 mg/dL (0.55-1.30); POTASSIUM 4.4 mmol/L (3.5-5.1)
[2024-03-16] MEDS ORDERED: AMOX-423 PO (11:15)
== END 2024-03-16 13:30 | disposition home or self-care (01) | DRG 140 ==
LOC: SED 16:33 → STU 20:39
PROVIDERS: ADMIT Student in an Organized Health Care Education/Training Program; ATTEND Student in an Organized Health Care Education/Training Program
DX: J44.1 Chronic obstructive pulmonary disease with (acute) exacerbation (principal); J96.01 Acute respiratory failure with hypoxia; E78.5 Hyperlipidemia, unspecified; Z20.822 Contact with and (suspected) exposure to COVID-19; I10 Essential (primary) hypertension; Z79.899 Other long term (current) drug therapy; Z79.51 Long term (current) use of inhaled steroids
CPT/HCPCS: 36415; 36600; 71045; 80048; 80053; 80076; 81001; 81003; 82803; 83605; 84484; 85025; 85610; 85730; 87040; 87086; 93005; 94640; 94664; 94760; 99285; G0378; J0295; J1030; J1885; J2270; J2405; J2930; J7612

== ENCOUNTER 2024-05-17 03:42 | Inpatient (IN) | payer MEDICAID ==
[2024-05-17] VITALS (9 sets, daily range): BP systolic 130–162; PULSE 75–102; RESP 15–23; TEMP 97.4–98; O2SAT 92–100
[~2024-05-17] VITALS: Ht 165.1 cm; Wt 92.1 kg
[~2024-05-17 03:42] MED LIST changes: -ALBMDI INH; -ANT30 PO; -AZIT500T PO; -PRED20TA PO; -PRO40 PO; -SUCR1TAB2 PO; -TAMS0.4C96 PO
[2024-05-17] MEDS: ALBUTEROL SULFATE 0.083% 2.5 MG/3 ML VIAL.NEB INH ONE (04:05)
[2024-05-17] MEDS ORDERED: MAGNESIUM SULFATE 50 ML IV ONE (04:09)
[2024-05-17] MEDS ORDERED: AZITHROMYCIN 500 MG/VIAL (ZITHROMAX) IV ONE (04:09)
[2024-05-17] MEDS ORDERED: methylPREDNISolone SOD SUCC/PF 62.5 MG/ML VIAL ONE (04:11)
[2024-05-17] MEDS ORDERED: cefTRIAXone 1 GM IVPB PREMIX 50 ML IV ONE (04:11)
[2024-05-17] MEDS: methylPREDNISolone SOD SUCC/PF 62.5 MG/ML VIAL IVP ONE (04:14)
[2024-05-17] MEDS: MAGNESIUM SULFATE 50 ML IV ONE (04:20)
[2024-05-17] MEDS: cefTRIAXone 1 GM IVPB PREMIX 50 ML IV ONE (04:29)
[2024-05-17] MEDS: MORPHINE 4 MG INJ. 4 MG/ML VIAL IVP ONE (04:34)
[2024-05-17] MEDS ORDERED: MORPHINE 4 MG INJ. 4 MG/ML VIAL ONE (04:36)
[2024-05-17] MEDS: AZITHROMYCIN 500 MG in NS 250 ML IV ONE (04:56)
[2024-05-17 04:58] LABS: BASOPHILS # (AUTO) 0.1 K/uL (0.0-0.2); BASOPHILS % (AUTO) 0.6 % (0.0-2.0); EOSINOPHILS # (AUTO) 0.7 K/uL (0.0-0.4); EOSINOPHILS % (AUTO) 6.2 % (0.0-4.0); HEMOGLOBIN 15.1 g/dL (14.0-18.0); LYMPHOCYTES # (AUTO) 6.6 K/uL (1.0-5.5); MEAN CORPUSCULAR HEMOGLOBIN 29 pg (27-31); MEAN CORPUSCULAR HGB CONC 33 % (32-36); MEAN CORPUSCULAR VOLUME 89 fL (79.0-98.0); MONOCYTES # (AUTO) 0.7 K/uL (0.0-1.0); MONOCYTES % (AUTO) 5.7 % (1.7-9.3); NEUTROPHILS # (AUTO) 3.7 K/uL (1.8-7.7); NEUTROPHILS % (AUTO) 31.5 % (40.0-70.0); PLATELET COUNT (AUTO) 360 K/uL (130-430); RED BLOOD CELL COUNT(AUTO) 5.17 MIL/uL (4.2-6.2); RED CELL DISTRIBUTION WIDTH 14.8 % (9.0-15.0); WHITE BLOOD COUNT (AUTO) 11.9 K/uL (4.8-10.8)
[2024-05-17 05:07] LABS: BILIRUBIN,DIRECT 0.1 mg/dL (0.0-0.3); CALCIUM 8.7 mg/dL (8.4-11.0); CREATININE 1.04 mg/dL (0.55-1.30); POTASSIUM 3.6 mmol/L (3.5-5.1); TOTAL BILIRUBIN 0.4 mg/dL (0.0-1.0); TOTAL PROTEIN, SERUM 7.3 g/dL (6.4-8.3)
[2024-05-17] MEDS ORDERED: ALBUTEROL SULFATE 0.083% 2.5 MG/3 ML VIAL.NEB INH ONE (07:32)
[2024-05-17] MEDS: ALBUTEROL SULFATE 0.083% 2.5 MG/3 ML VIAL.NEB INH SCH (07:34)
[2024-05-17] MEDS ORDERED: LOSARTAN POTASSIUM 50 MG TABLET (COZAAR) PO SCH (09:00)
[2024-05-17] MEDS ORDERED: IPRATROPIUM/ALBUTEROL SULFATE 3 ML AMPUL.NEB (DUONEB) INH PRN (11:15)
[2024-05-17] MEDS ORDERED: OMEPRAZOLE Non-Formulary 20 MG CAPSULE.DR PO SCH (11:15)
[2024-05-17] MEDS ORDERED: FLUTICASONE/VILANTEROL 1 EACH BLST.W.DEV INH SCH (11:15)
[2024-05-17] MEDS: LOSARTAN POTASSIUM 50 MG TABLET (COZAAR) PO ONE (11:36)
[2024-05-17] MEDS: ATORVASTATIN 20 MG TABLET PO ONE (11:37)
[2024-05-17] MEDS: methylPREDNISolone SOD SUCC/PF 62.5 MG/ML VIAL IVP SCH (13:26)
[2024-05-17] MEDS: PANTOPRAZOLE SODIUM 40 MG TAB PO ONE (13:27)
[2024-05-17] MEDS: cefTRIAXone 1 GM in D5W 50 ML IV SCH (13:28)
[2024-05-17] MEDS: AZITHROMYCIN 500 MG in NS 250 ML IV SCH (13:28)
[2024-05-18] VITALS (8 sets, daily range): BP systolic 125–131; PULSE 85–92; RESP 14–18; TEMP 97.9–98.3; O2SAT 93–97
[2024-05-18 06:45] LABS: BASOPHILS % (AUTO) 0.1 % (0.0-2.0); HEMATOCRIT 41.8 % (36-54); HEMOGLOBIN 13.9 g/dL (14.0-18.0); LYMPHOCYTES % (AUTO) 17.2 % (20.5-51.5); MEAN CORPUSCULAR HEMOGLOBIN 29 pg (27-31); MEAN CORPUSCULAR HGB CONC 33 % (32-36); MEAN CORPUSCULAR VOLUME 89 fL (79.0-98.0); MONOCYTES # (AUTO) 0.2 K/uL (0.0-1.0); MONOCYTES % (AUTO) 1.8 % (1.7-9.3); NEUTROPHILS # (AUTO) 9.3 K/uL (1.8-7.7); NEUTROPHILS % (AUTO) 80.9 % (40.0-70.0); PLATELET COUNT (AUTO) 357 K/uL (130-430); RED BLOOD CELL COUNT(AUTO) 4.73 MIL/uL (4.2-6.2); RED CELL DISTRIBUTION WIDTH 14.5 % (9.0-15.0); WHITE BLOOD COUNT (AUTO) 11.5 K/uL (4.8-10.8)
[2024-05-18 07:16] LABS: ALBUMIN 3.2 g/dL (3.4-4.8); CALCIUM 8.7 mg/dL (8.4-11.0); CREATININE 0.96 mg/dL (0.55-1.30); POTASSIUM 3.8 mmol/L (3.5-5.1); TOTAL BILIRUBIN 0.4 mg/dL (0.0-1.0); TOTAL PROTEIN, SERUM 6.3 g/dL (6.4-8.3)
[2024-05-18] MEDS: LOSARTAN POTASSIUM 50 MG TABLET (COZAAR) PO SCH (08:13)
[2024-05-18] MEDS: PANTOPRAZOLE SODIUM 40 MG TAB PO SCH (08:13)
[2024-05-18] MEDS: ATORVASTATIN 20 MG TABLET PO SCH (08:14)
[2024-05-18] MEDS ORDERED: METH-776 PO (17:50)
[2024-05-18] MEDS ORDERED: CEPH-548 PO (17:52)
[2024-05-18] MEDS ORDERED: IPRA4AER INH (17:54)
== END 2024-05-18 19:25 | disposition home or self-care (01) | DRG 140 ==
LOC: SED 03:42 → STU 06:27
PROVIDERS: ADMIT Internal Medicine; ATTEND Internal Medicine
PROC: 5A09357 Assistance with Respiratory Ventilation, Less than 24 Consecutive Hours, Continuous Positive Airway Pressure (ICD-10-PCS; principal; 2024-05-17)
DX: J44.1 Chronic obstructive pulmonary disease with (acute) exacerbation (principal); J96.00 Acute respiratory failure, unspecified whether with hypoxia or hypercapnia; E87.0 Hyperosmolality and hypernatremia; I10 Essential (primary) hypertension; J20.9 Acute bronchitis, unspecified; K21.9 Gastro-esophageal reflux disease without esophagitis; J44.0 Chronic obstructive pulmonary disease with (acute) lower respiratory infection; Z87.891 Personal history of nicotine dependence; Z79.51 Long term (current) use of inhaled steroids; Z79.899 Other long term (current) drug therapy
CPT/HCPCS: 36415; 71045; 80048; 80053; 80076; 85025; 87040; 94640; 94660; 94760; 99285; G0378; J0456; J0696; J2270; J2930; J3475; J7050; J7060